=== PATIENT | female | born 1975 | race Native Hawaiian/Other Pacific Islander ===

== ENCOUNTER 2018-08-01 08:21 | Emergency (ER) | payer OTHER ==
[2018-08-01 08:22] VITALS: BMI 27.1
[2018-08-01 08:35] VITALS: BP 123/67; PULSE 100; RESP 18; TEMP 98.5; O2SAT 100
--- NOTE | 2018-08-01 08:52 | C.PDOC ---
History Of Present Illness 43 y/o female, , presents to ED requesting termination medication. Pt reports having positive home test this morning. Notes she does not wish to continue this . LMP: 06/27/18. Otherwise, denies abdominal pain, n/v/d, constipation, urinary symptoms, vaginal bleeding, vaginal discharge, chest pain, shortness of breath, fever, or chills. Denies previous hx of ectopic . Time Seen by Provider: 08/01/18 08:30 Chief Complaint (Nursing): Medical Clearance History Per: Patient History/Exam Limitations: no limitations Onset/Duration Of Symptoms: Days Recent travel outside of the [place]: No Additional History Per: Patient Past Medical History Reviewed: Historical Data, Nursing Documentation, Vital Signs Vital Signs: Last Vital Signs Temp 98.5 F 08/01/18 08:29 Pulse 100 H 08/01/18 08:29 Resp 18 08/01/18 08:29 BP 123/67 08/01/18 08:29 Pulse Ox 100 08/01/18 08:29 Family History: States: Unknown Family Hx (no pertinent family history) - Social History Hx Tobacco Use: No Hx Alcohol Use: No Hx Substance Use: No - Immunization History Hx Tetanus Toxoid Vaccination: No Hx Influenza Vaccination: No Hx Pneumococcal Vaccination: No Review Of Systems Except As Marked, All Systems Reviewed And Found Negative. Constitutional: Negative for: Fever, Chills Gastrointestinal: Negative for: Nausea, Vomiting, Abdominal Pain, Diarrhea Genitourinary: Negative for: Dysuria, Frequency, Hematuria, Vaginal Discharge, Vaginal Bleeding, Pelvic Pain Musculoskeletal: Negative for: Back Pain Physical Exam - Physical Exam Appears: Non-toxic, No Acute Distress Skin: Normal Color, Warm, Dry, No Rash Head: Normacephalic Eye(s): bilateral: PERRL Nose: No Flaring, No Discharge Oral Mucosa: Moist, No Drooling Throat: No Erythema, No Drooling Neck: Trachea Midline, Supple Chest: Symmetrical Cardiovascular: Rhythm Regular, No Murmur, No JVD Respiratory: No Accessory Muscle Use, No Rales, No Rhonchi, No Wheezing Gastrointestinal/Abdominal: Soft, No Tenderness, No Distention, No Guarding, No Rebound Back: No CVA Tenderness Extremity: Normal ROM, No Pedal Edema, No Deformity, No Swelling Neurological/Psych: Oriented x3, Normal Speech ED Course And Treatment - Laboratory Results Urine POC: Positive O2 Sat by Pulse Oximetry: 100 (RA) Pulse Ox Interpretation: Normal Progress Note: UA ordered and reviewed. On re-eval, pt is afebrile, hemodynamicaly stable. non-toxic. Denies abd. pain or vaginal bleeidng. Abd: benign, (-) guarding, (-) rebound. back: (-) CVA tenderness. UA results- normal, (-) RBC. preg (+). Pt hsa clinical findings c/w early . pt advised and ref. to F/u with OB in 1-2 days for re-eval. return if any worsening or new changes. Disposition Counseled Patient/Family Regarding: Diagnosis, Need For Followup - Disposition [facility] Disposition: HOME/ ROUTINE Disposition Time: 08:47 Condition: STABLE Additional Instructions: Follow up with BENEFITS DIRECTOR in 1-2 days for re-evaluation and further treatment as need Return to Ed if any worsening-abdominal pain, vaginal bleeding or any other new changes at any time for re-evaluation. Instructions: Tests Forms: [facility] [employer] (Yi) - Clinical Impression Clinical Impression: - PA / FAMILY NURSE PRACTITIONER / Resident Statement MD/DO has reviewed & agrees with the documentation as recorded. - Scribe Statement The provider has reviewed the documentation as recorded by the Scribe KP All medical record entries made by the Scribe were at my direction and personally dictated by me. I have reviewed the chart and agree that the record accurately reflects my personal performance of the history, physical exam, medical decision making, and the department course for this patient. I have also personally directed, reviewed, and agree with the discharge instructions and disposition.
[2018-08-01 09:16] LABS: HCG,QUALITATIVE URINE POSITIVE (NEGATIVE)
[2018-08-01 09:17] LABS: SQUAMOUS EPITHIAL < 1 /hpf (0-5); URINE BILIRUBIN NEGATIVE (NEGATIVE); URINE BLOOD NEGATIVE (NEGATIVE); URINE CLARITY Clear (Clear); URINE COLOR Straw (YELLOW); URINE GLUCOSE (UA) NORMAL (Normal); URINE LEUKOCYTE ESTERASE NEG Leu/uL (Negative); URINE PROTEIN NEGATIVE (NEGATIVE); URINE UROBILINOGEN NORMAL mg/dL (0.2-1.0)
== END 2018-08-01 09:43 | disposition home or self-care (01) ==
LOC: C.ER 08:21
DX: O26.90 Pregnancy related conditions, unspecified, unspecified trimester (principal); Z3A.00 Weeks of gestation of pregnancy not specified